=== PATIENT | male | born 1990 | race Two or more races ===

== ENCOUNTER 2017-10-18 20:37 | Emergency (ER) | payer BC ==
[2017-10-18 20:41] VITALS: BP 161/95; PULSE 85; RESP 16; TEMP 98.6; O2SAT 97
--- NOTE | 2017-10-18 20:51 | EDPHY ---
H & P Time Seen by Provider: 10/18/17 20:46 HPI/ROS: CHIEF COMPLAINT: Left index finger laceration HISTORY OF PRESENT ILLNESS: 26-year-old male with up-to-date tetanus was cleaning a mirror and did not notice a sharp edge sustaining laceration to the left 2nd digit. The glass did not fracture. PHYSICAL EXAM (Prior to examination, patient consented to physical exam, hands were washed and my usual and customary physical exam procedures followed) 1) GENERAL: Well-developed, well-nourished, alert and oriented. Appears to be in no acute distress. 2) HEAD: Normocephalic 3) HEENT: sclera anicteric 4) LUNGS: Breathing comfortably. 5) SKIN: Left 2nd digit laceration to the the IP joint primarily on the ulnar aspect measuring 2 cm 6) MUSCULOSKELETAL: FDP FDS function intact 7) NEUROLOGIC: Two-point discrimination intact distally Smoking Status: Never smoked Constitutional: Initial Vital Signs Temperature (C) 37 C 10/18/17 20:39 Heart Rate 85 10/18/17 20:39 Respiratory Rate 16 10/18/17 20:39 Blood Pressure 161/95 H 10/18/17 20:39 O2 Sat (%) 97 10/18/17 20:39 O2 Delivery Mode Room Air Allergies/Adverse Reactions: No Known Allergies Allergy (Unverified 10/18/17 20:41) MDM/Departure - MDM Procedures: Procedure: Laceration repair. I explained the indications, risks and benefits for both laceration repair and anesthetic administration. Verbal consent was obtained from the patient. The laceration on the left index finger was anesthetized using 0.5% bupivicaine without epinephrine digital nerve block. After anesthetic administered the patient was observed for a period of time and had no apparent adverse effects. The wound was cleaned, prepped, draped in normal sterile fashion and explored to its base. No foreign body seen, no foreign bodies palpated. There were no deep structures involved. No tendon injury was identified. The wound was repaired with 5 simple interrupted 5 O Ethilon sutures. The wound repair was simple. The procedure was performed by myself. Patient has been informed that scarring will occur, although efforts have been made to minimize this. ED Course/Re-evaluation: Care of patient under supervision of secondary supervising physician Dr Carney . - Depart Disposition: Home, Routine, Self-Care Clinical Impression: Laceration of left index finger Qualifiers: Encounter type: initial encounter Damage to nail status: without damage Foreign body presence: without foreign body Qualified Code(s): S61.211A - Laceration without foreign body of left index finger without damage to nail, initial encounter Condition: Good Instructions: Care For Your Stitches (ED), Laceration (ED) Additional Instructions: Return to the ER if you develop redness, swelling, discharge, warmth to the wound, red streaks going up your arm, or any other symptoms that concern you. Referrals: Return, to the ER in 10 days for suture removal [Other] - 10/28/17
== END 2017-10-18 21:26 | disposition home or self-care (01) ==
PROC: 0HQGXZZ Repair Left Hand Skin, External Approach (ICD-10-PCS; principal; 2017-10-18)
DX: S61.211A Laceration without foreign body of left index finger without damage to nail, initial encounter (principal); W25.XXXA Contact with sharp glass, initial encounter; Y99.8 Other external cause status; Y93.E5 Activity, floor mopping and cleaning